=== PATIENT | female | born 1960 | race Caucasian/White ===

== ENCOUNTER 2020-03-24 16:33 | Emergency (ER) | payer BC, OTHER ==
[~2020-03-24] VITALS: Ht 165 cm; Wt 65.0 kg
--- NOTE | 2020-03-24 17:00 | ED Cardiac General ---
History of Present Illness General Chief Complaint: Cardiac/General Problems Stated Complaint: SOA,IRREGULAR Source: patient (RICKJUAN MANUEL Stinson DO) History of Present Illness Date Seen by Provider: March 24, 2020 Time Seen by Provider: 16:47 Initial Comments 59-year-old female presents with palpitations, irregular heartbeat and feeling of dyspnea. Patient reports that the symptoms have been going on for 8 days. Patient reports that she's had multiple episodes in the past. She has worn a Holter monitor in the past. Patient does admit to having significant anxiety and is very anxious upon presentation. Patient admits to a history of sarcoidosis but with a recent negative cardiac PET scan. Patient was supposed to start methotrexate but is been very nervous and anxious about that. (JUAN MANUEL CABRERA DO) Allergies and Home Medications Allergies Coded Allergies: Sulfa (Sulfonamide Antibiotics) (Verified Allergy, Intermediate, 03/24/20) penicillin G (Verified Allergy, Unknown, 03/24/20) Patient Home Medication List Home Medication List Reviewed: Yes (JUAN MANUEL CABRERA DO) Review of Systems Review of Systems Constitutional: No chills, No fever EENTM: No Symptoms Reported Respiratory: See HPI Cardiovascular: See HPI Gastrointestinal: No Symptoms Reported Skin: no symptoms reported Psychiatric/Neurological: Anxiety (JUAN MANUEL CABRERA DO) Past Ytnbans-Dhajkw-Zmziyu Hx Past Med/Social Hx: Reviewed Nursing Past Med/Soc Hx (JUAN MANUEL CABRERA DO) Patient Social History Recent Foreign Travel: No Contact w/Someone Who Travel: No (JUAN MANUEL CABRERA DO) Physical Exam Vital Signs Vital Signs - First Documented 03/24/20 17:13 Temp 36.3 Pulse 106 Resp 18 B/P (MAP) 138/60 (86) Pulse Ox 100 O2 Delivery Room Air (AVEYR MACK MD) Vital Signs Capillary Refill : (JUAN MANUEL CABRERA DO) Height, Weight, BMI Height: '" Weight: lbs. oz. kg; BMI Method: General Appearance: No Apparent Distress, Anxious Respiratory: Lungs Clear, Normal Breath Sounds, No Accessory Muscle Use Cardiovascular: Tachycardia Gastrointestinal: Non Tender, Soft Extremity: Normal Capillary Refill, Normal Inspection Neurologic/Psychiatric: Alert, Oriented x3, No Motor/Sensory Deficits, splitting machine tender II- XII Norm as Tested Skin: Normal Color, Warm/Dry (JUAN MANUEL CABRERA DO) Progress/Results/Core Measures Results/Orders Lab Results Laboratory Tests Test 03/24/20 17:03 Range/Units White Blood Count 4.9 4.3-11.0 10^3/uL Red Blood Count 4.77 4.35-5.85 10^6/uL Hemoglobin 14.2 11.5-16.0 G/DL Hematocrit 42 35-52 % Mean Corpuscular Volume 88 80-99 FL Mean Corpuscular Hemoglobin 30 25-34 PG Mean Corpuscular Hemoglobin Concent 34 32-36 G/DL Red Cell Distribution Width 11.9 10.0-14.5 % Platelet Count 234 130-400 10^3/uL Mean Platelet Volume 9.0 7.4-10.4 FL Neutrophils (%) (Auto) 55 42-75 % Lymphocytes (%) (Auto) 38 12-44 % Monocytes (%) (Auto) 7 0-12 % Eosinophils (%) (Auto) 0 0-10 % Basophils (%) (Auto) 1 0-10 % Neutrophils # (Auto) 2.7 1.8-7.8 X 10^3 Lymphocytes # (Auto) 1.9 1.0-4.0 X 10^3 Monocytes # (Auto) 0.3 0.0-1.0 X 10^3 Eosinophils # (Auto) 0.0 0.0-0.3 10^3/uL Basophils # (Auto) 0.0 0.0-0.1 10^3/uL D-Dimer 0.23 0.00-0.49 UG/ML Sodium Level 141 135-145 MMOL/L Potassium Level 3.8 3.6-5.0 MMOL/L Chloride Level 103 98-107 MMOL/L Carbon Dioxide Level 23 21-32 MMOL/L Anion Gap 15 H 5-14 MMOL/L Blood Urea Nitrogen 14 7-18 MG/DL Creatinine 0.93 0.60-1.30 MG/DL Estimat Glomerular Filtration Rate > 60 BUN/Creatinine Ratio 15 Glucose Level 107 H 70-105 MG/DL Calcium Level 9.6 8.5-10.1 MG/DL Corrected Calcium 8.5-10.1 MG/DL Magnesium Level 2.0 1.6-2.4 MG/DL Total Bilirubin 0.5 0.1-1.0 MG/DL Aspartate Amino Transf (AST/SGOT) 18 5-34 U/L Alanine Aminotransferase (ALT/SGPT) 11 0-55 U/L Alkaline Phosphatase 59 40-136 U/L Troponin I < 0.30 <0.30 NG/ML Pro-B-Type Natriuretic Peptide 80.7 H <75.0 PG/ML Total Protein 7.4 6.4-8.2 GM/DL Albumin 4.6 H 3.2-4.5 GM/DL Lipase 65 8-78 U/L (AVERY MACK MD) Medications Given in ED Current Medications Medications Dose Ordered Sig/Rahat Route Start Time Stop Time Status Last Admin Dose Admin Iohexol 75 ml ONCE ONCE IV 03/24/20 18:00 03/24/20 18:01 DC 03/24/20 18:47 75 ML Sodium Chloride 10 ml NEEDED PRN IV 03/24/20 18:00 03/24/20 18:47 10 ML Sodium Chloride 100 ml ONCE ONCE IV 03/24/20 18:00 03/24/20 18:01 DC 03/24/20 18:47 100 ML (AVERY MACK MD) Vital Signs/I&O 03/24/20 17:13 Temp 36.3 Pulse 106 Resp 18 B/P (MAP) 138/60 (86) Pulse Ox 100 O2 Delivery Room Air (AVERY MACK MD) Progress Progress Note : Time: 19:22 Progress Note I, Dr. Mack, assumed care for Mrs. Valdez at 1800 at shift change from Dr. Cabrera. Instructions at that time were to follow up on results of CT scan for disposition. In brief, Mrs. Valdez is a 59-year-old female with a history of pulmonary sarcoidosis, relatively recently diagnosed in November of this year after several years of nonproductive cough. She follows at [facility] with a lawnmower repair mechanic. She has no known cardiovascular disease. She presents with concern for 8 days of acute palpitations. She states that she will feel her heart beating irregularly. She states she has a long history of evaluation for palpitations and has worn a Holter monitor in the past but she states that these palpitations feel different. She denies associated fevers, nausea or vomiting, upper respiratory congestion/rhinorrhea, new or worsened cough, shortness of breath or chest pain, abdominal pain, flank pain, back pain, dysuria or hematuria, changes in bowel habits. She is alert and pleasantly and appropriately interactive and in no acute distress on my evaluation, although as Dr. Cabrera noted she is quite anxious appearing. Results of workup reviewed. Her electrocardiogram is reviewed and demonstrates premature atrial contractions as above. Intervals are appropriate and there is no evidence of a heart block or any ischemic changes. Telemetry monitoring also demonstrates fairly frequent premature atrial contractions without other acute abnormality identified. Labs are almost entirely unremarkable aside from trivial elevation in BNP aside from findings of fluid overload on chest x-ray. Chest x- ray was abnormal and a CT scan of the chest with contrast was obtained to further characterize pulmonary findings on plain imaging. Radiologist report is as noted, most likely consistent with known pulmonary sarcoidosis. Patient has not had any symptoms of pulmonary illness recently so infectious etiology is not felt likely. Case is discussed with Dr. Bhatia of cardiology at [facility] who would like to see the patient in the office for close follow-up in the next 1-2 days. The patient is to call for an appointment. He states that without evidence of heart block or other concerning acute process there is no need for further testing or treatment at this time and the patient is safe for dismissal home to follow up with him in the office to discuss next steps in care. I have also counseled her that she should follow up closely with her lawnmower repair mechanic in the next 1-2 weeks. She understands that if she feels worse is that of better or develops other new symptoms of concern that she should return to the emergency department right away for reevaluation. All questions are answered. (AVERY MACK MD) Comment Sinus rhythm, rate 108, no acute ST elevation or depression, LA 122, QRS 100, QTC 464, occasional PACs, EP interpretation. (AVERY MACK MD) Diagnostic Imaging Diagonstic Imaging: Xray Plain Films/CT/US/NM/MRI: chest Comments [facility], [place] NAME: MARITO VALDEZ [facility] REC#: [id number] PT STATUS: REG ER : 1960 PHYSICIAN: JUAN MANUEL CABRERA DO ADMIT DATE: 03/24/20/ER FS Draft Date of Exam:03/24/20 CHEST PA/LAT (2 VIEW) CHEST PA/LAT (2 VIEW) INDICATION: Shortness of air, irregular heartbeat. COMPARISON: None available. FINDINGS: Bilateral perihilar ill-defined pulmonary opacities are present. Interstitial opacities are also present centrally. No pleural effusion or pneumothorax. Heart is not enlarged. IMPRESSION: Imaging features are most suggestive of pulmonary edema. Atypical infection or hemorrhage could also give this appearance in appropriate setting. (JUAN MANUEL CABRERA DO) Diagonstic Imaging: CT Comments CT CHEST W CT CHEST W TECHNIQUE: Multiple contiguous axial images were obtained through the chest with the use of intravenous contrast. All CT scans use one or more of the following dose optimizing techniques: automated exposure control, MA and/or KvP adjustment based on a patient size and exam type, or iterative reconstruction. INDICATION: Shortness of air, irregular heart rate COMPARISON: Chest radiograph of earlier same day FINDINGS: Lungs and airway: No endoluminal nodule. Multifocal random and perilymphatic micronodules are present throughout both lungs. No pulmonary fibrosis. No consolidations. Linear opacities are present in left lower lobe and favor atelectasis/scar. Pleura: No pleural effusion or pneumothorax. Heart and mediastinum: No supraclavicular or axillary lymphadenopathy. There are multiple mildly enlarged mediastinal lymph nodes, some of which are partially calcified. This includes a subcarinal lymph node with a maximal short axis diameter of 1.5 cm and a right upper paratracheal lymph node measuring 1.0 cm. There are borderline enlarged bilateral hilar lymph nodes. No juxtaphrenic lymphadenopathy. Heart is normal in size without pericardial effusion. Normal caliber thoracic aorta. Upper abdomen: Simple cyst within the dome of the liver requires no dedicated followup imaging. No acute abnormality in the upper abdomen. Musculoskeletal: No concerning focal osseous lesions. IMPRESSION: 1. Pulmonary micronodules have a predominant perilymphatic distribution and are most likely due to patient's known sarcoidosis. Superimposed infectious process remains a possibility but is felt less likely. 2. Mediastinal and hilar lymphadenopathy further supports patient's diagnosis of sarcoidosis. Dictated by: Dictated on workstation # [id number] (AVERY MACK MD) Departure Impression Primary Impression: Premature atrial contractions Additional Impression: Sarcoidosis Disposition: 01 HOME, SELF-CARE Condition: Stable Departure-Patient Inst. Referrals: MATILDE RIOS MD (PCP/Family) Primary Care Physician Patient Instructions: Sarcoidosis Add. Discharge Instructions: Follow-up very closely with Dr. Bhatia of [facility] cardiology in the office in the next 1-2 days as discussed. Please call his office at the number provided tomorrow morning when the clinic opens and let the electrifier operator note that Dr. Bhatia would like you to be worked in for the first available appointment. We would like you to follow-up very closely with her lawnmower repair mechanic as well, ideally within the next 1-2 weeks. Return to the emergency department right away with worsening symptoms or with any other new symptoms of concern. JUAN MANUEL CABRERA DO March 24, 2020 17:00 AVERY MACK MD March 24, 2020 19:29
--- NOTE | 2020-03-24 17:08 | Diagnostic Imaging Report ---
CHEST PA/LAT (2 VIEW) INDICATION: Shortness of air, irregular heartbeat. COMPARISON: None available. FINDINGS: Bilateral perihilar ill-defined pulmonary opacities are present. Interstitial opacities are also present centrally. No pleural effusion or pneumothorax. Heart is not enlarged. IMPRESSION: Imaging features are most suggestive of pulmonary edema. Atypical infection or hemorrhage could also give this appearance in appropriate setting. Dictated by: Dictated on workstation # [id number]
[2020-03-24 17:20] LABS: BASOPHILS % (AUTO) 1 % (0-10); EOSINOPHILS % (AUTO) 0 % (0-10); HEMATOCRIT 42 % (35-52); HEMOGLOBIN 14.2 G/DL (11.5-16.0); LYMPHOCYTES # (AUTO) 1.9 X 10^3 (1.0-4.0); LYMPHOCYTES % (AUTO) 38 % (12-44); MEAN CORPUSCULAR HEMOGLOBIN 30 PG (25-34); MEAN CORPUSCULAR HGB CONC 34 G/DL (32-36); MEAN CORPUSCULAR VOLUME 88 FL (80-99); MONOCYTES # (AUTO) 0.3 X 10^3 (0.0-1.0); MONOCYTES % (AUTO) 7 % (0-12); NEUTROPHILS # (AUTO) 2.7 X 10^3 (1.8-7.8); NEUTROPHILS % (AUTO) 55 % (42-75); PLATELET COUNT 234 10^3/uL (130-400); RED CELL DISTRIBUTION WIDTH 11.9 % (10.0-14.5); WHITE BLOOD COUNT 4.9 10^3/uL (4.3-11.0)
[2020-03-24 17:45] LABS: ALANINE AMINOTRANSFERASE 11 U/L (0-55); ALKALINE PHOSPHATASE 59 U/L (40-136); BILIRUBIN,TOTAL 0.5 MG/DL (0.1-1.0); BUN/CREATININE RATIO 15; CALCIUM 9.6 MG/DL (8.5-10.1); CARBON DIOXIDE 23 MMOL/L (21-32); CHLORIDE 103 MMOL/L (98-107); CREATININE SERUM 0.93 MG/DL (0.60-1.30); GFR ESTIMATED > 60; GLUCOSE 107 MG/DL (70-105); POTASSIUM 3.8 MMOL/L (3.6-5.0); SODIUM 141 MMOL/L (135-145)
[2020-03-24 17:46] LABS: ALBUMIN 4.6 GM/DL (3.2-4.5); LIPASE 65 U/L (8-78); TOTAL PROTEIN 7.4 GM/DL (6.4-8.2)
[2020-03-24] MEDS ORDERED: HOLD METFORMIN - RECEIVED CONTRAST 20 ML VIAL IV SCH (18:00)
[2020-03-24] MEDS ORDERED: NS 100 ML (IVPB) BAG IV ONE (18:00)
[2020-03-24] MEDS ORDERED: IOHEXOL 350 MG/ML 100 ML (OMNIPAQUE 350) VIAL IV ONE (18:00)
[2020-03-24] MEDS ORDERED: CATHETER FLUSH 10 ML SYR IV PRN (18:00)
--- OUTSIDE RECORDS SUMMARY | 2020-03-24 18:26 | XMS REPORT | Continuity of Care Document ---
Author Organization Unknown Address Unknown Phone Unavailable Allergies There is no data. Medications There is no data. Problems There is no data. Procedures There is no data. Results Test Result Range Complete blood count (CBC) with automate d white blood cell (WBC) differential - 03/24/20 17:03 Blood leukocytes automated count (number/volume) 4.9 10*3/uL 4.3-11.0 Blood erythrocytes automated count (number/volume) 4.77 10*6/uL 4.35-5.85 Venous blood hemoglobin measurement (mass/volume) 14.2 g/dL 11.5-16.0 Blood hematocrit (volume fraction) 42 % 35-52 Automated erythrocyte mean corpuscular volume 88 [ foz_us] 80-99 Automated erythrocyte mean corpuscular h emoglobin (mass per erythrocyte) 30 pg 25-34 Automated erythrocyte mean corpuscular h emoglobin concentration measurement (mass/volume) 34 g/dL 32-36 Automated erythrocyte distribution width ratio 11. 9 % 10.0- 14.5 Automated blood platelet count (count/volume) 234 10*3/uL 130-400 Automated blood platelet mean volume measurement 9.0 [foz_us] 7.4-10.4 Automated blood neutrophils/100 leukocytes 55 % 42-75 Automated blood lymphocytes/100 leukocytes 38 % 12-44 Blood monocytes/100 leukocytes 7 % 0-12 Automated blood eosinophils/100 leukocytes 0 % 0-10 Automated blood basophils/100 leukocytes 1 % 0-10 Blood neutrophils automated count (number/volume) 2.7 10*3 1.8-7.8 Blood lymphocytes automated count (number/volume) 1.9 10*3 1.0-4.0 Blood monocytes automated count (number/volume) 0. 3 10*3 0.0-1.0 Automated eosinophil count 0.0 10*3/uL 0 .0-0.3 Automated blood basophil count (count/volume) 0.0 10*3/uL 0.0-0.1 Fibrin D-dimer FEU measurement in platel et poor plasma (mass/volume) - 03/24/20 17:03 Fibrin D-dimer FEU measurement in platelet poor plasma (mass/volume) 0.23 ug/mL 0.00-0.49 Comprehensive metabolic panel - 03/24/20 17:03 Serum or plasma sodium measurement (moles/volume) 141 mmol/L 135-145 Serum or plasma potassium measurement (moles/volume) 3.8 mmol/L 3.6-5.0 Serum or plasma chloride measurement (moles/volume) 103 mmol/L 98-107 Carbon dioxide 23 mmol/L 21-32 Serum or plasma anion gap determination (moles/volume) 15 mmol/L 5-14 Serum or plasma urea nitrogen measurement (mass/volume ) 14 mg/dL 7-18 Serum or plasma creatinine measurement (mass/volume) 0.93 mg/dL 0.60-1.30 Serum or plasma urea nitrogen/creatinine mass ratio 15 NRG Serum or plasma creatinine measurement w ith calculation of estimated glomerular filtration rate > NRG Serum or plasma glucose measurement (mass/volume) 107 mg/dL 70-105 Serum or plasma calcium measurement (mass/volume) 9.6 mg/dL 8.5-10.1 Serum or plasma total bilirubin measurement (mass/volu me) 0.5 mg/dL 0.1-1.0 Serum or plasma alkaline phosphatase joshua surement (enzymatic activity/volume) 59 U/L 40-136 Serum or plasma aspartate aminotransfera se measurement (enzymatic activity/volume) 18 U/L 5-34 Serum or plasma alanine aminotransferase measurement (enzymatic activity/volume) 11 U/L 0-55 Serum or plasma protein measurement (mass/volume) 7.4 g/dL 6.4-8.2 Serum or plasma albumin measurement (mass/volume) 4.6 g/dL 3.2-4.5 Magnesium - 03/24/20 17:03 Magnesium 2.0 mg/dL 1.6-2.4 TROPONIN I FS - 03/24/20 17:03 TROPONIN I FS < 0.30 <0.30 PROBNP FS - 03/24/20 17:03 PROBNP FS 80.7 pg/mL <75.0 Lipase - 03/24/20 17:03 Lipase 65 U/L 8-78 Encounters ACCT No. Visit Date/Time Discharge Status Pt. Type Provider Facility Loc./Unit Complaint [id number] 10/26/2019 10:00:00 10/26/2019 23:59: 59 [facility] [id number] 03/24/2020 17:21:00 Document Registration
--- NOTE | 2020-03-24 18:54 | Diagnostic Imaging Report ---
CT CHEST W TECHNIQUE: Multiple contiguous axial images were obtained through the chest with the use of intravenous contrast. All CT scans use one or more of the following dose optimizing techniques: automated exposure control, MA and/or KvP adjustment based on a patient size and exam type, or iterative reconstruction. INDICATION: Shortness of air, irregular heart rate COMPARISON: Chest radiograph of earlier same day FINDINGS: Lungs and airway: No endoluminal nodule. Multifocal random and perilymphatic micronodules are present throughout both lungs. No pulmonary fibrosis. No consolidations. Linear opacities are present in left lower lobe and favor atelectasis/scar. Pleura: No pleural effusion or pneumothorax. Heart and mediastinum: No supraclavicular or axillary lymphadenopathy. There are multiple mildly enlarged mediastinal lymph nodes, some of which are partially calcified. This includes a subcarinal lymph node with a maximal short axis diameter of 1.5 cm and a right upper paratracheal lymph node measuring 1.0 cm. There are borderline enlarged bilateral hilar lymph nodes. No juxtaphrenic lymphadenopathy. Heart is normal in size without pericardial effusion. Normal caliber thoracic aorta. Upper abdomen: Simple cyst within the dome of the liver requires no dedicated followup imaging. No acute abnormality in the upper abdomen. Musculoskeletal: No concerning focal osseous lesions. IMPRESSION: 1. Pulmonary micronodules have a predominant perilymphatic distribution and are most likely due to patient's known sarcoidosis. Superimposed infectious process remains a possibility but is felt less likely. 2. Mediastinal and hilar lymphadenopathy further supports patient's diagnosis of sarcoidosis. Dictated by: Dictated on workstation # [id number]
[2020-03-24 19:40] VITALS: BP 107/73
[2020-03-25 16:07] LABS: TSH (THYROID ANALYZER) 1.44 UIU/ML (0.35-4.94)
== END 2020-03-24 19:40 | disposition home or self-care (01) ==
LOC: ER FS 16:35
DX: I49.1 Atrial premature depolarization (principal); D86.0 Sarcoidosis of lung; Z88.2 Allergy status to sulfonamides; Z88.0 Allergy status to penicillin
CPT/HCPCS: 36415; 71046; 71260; 80053; 83690; 83735; 83880; 84443; 84484; 85025; 85379; 93005; 93041

== ENCOUNTER → 2020-04-02 | Outpatient (CLI) | payer BC | LOC: CARD 10:53 | PROVIDERS: ATTEND Family Medicine | DX: I49.9 Cardiac arrhythmia, unspecified (principal) | CPT/HCPCS: 93225; 93226 ==

== ENCOUNTER → 2020-04-10 | Outpatient (CLI) | payer BC | LOC: CARD 09:59 | PROVIDERS: ATTEND Internal Medicine Cardiovascular Disease | DX: I49.1 Atrial premature depolarization (principal); R06.00 Dyspnea, unspecified; D68.9 Coagulation defect, unspecified; R00.2 Palpitations; I31.3 Pericardial effusion (noninflammatory) | CPT/HCPCS: 93306 ==

== ENCOUNTER → 2020-11-03 | Outpatient (CLI) | payer BC ==
[~2020-11-03] VITALS: Ht 165 cm; Wt 59.0 kg
[~2020-11-03] MED LIST: REGADENOSON 0.4 MG/5 ML SYR (LEXISCAN) IV ONE
[2020-11-03] MEDS: CATHETER FLUSH 10 ML SYR IV PRN ×2 (11:06→11:48)
[2020-11-03 11:46] VITALS: BP 109/74
--- NOTE | 2020-11-03 14:24 | Cardiology Stress Test Report ---
Stress Test Report Date of Procedure/Referring: Date of Procedure: Nov 03, 2020 PCP Kelsey Kendrick Admitting Physician Self,You PRINGLE Baseline Blood Pressure: Blood Pressure Systolic: 109 Blood Pressure Diastolic: 74 Baseline Vitals Vital Signs Date Time Temp Pulse Resp B/P (MAP) Pulse Ox O2 Delivery O2 Flow Rate FiO2 11/03/20 11:46 90 16 109/74 (86) 98 Room Air Summary After explaining the procedure to the patient, she signed a consent and then brought to the stress nuclear laboratory. Patient received 0.4 mg Lexiscan for stress test, ECG, heart rate and blood pressure were monitored continuously. Resting and stress dose of radio tracer were injected, imaging was acquired and reviewed in short axis, horizontal long axis and vertical long axis views. TID: 1.01 SSS: 9 SDS: 6 EF: 87 Patient tolerated test well Breast attenuation with mild decrease uptake in the mid to apical ari-septum, no significant ischemia or infarction on SPECT images Normal LV size, EF 87% KAR ALBRIGHT MD Nov 03, 2020 14:24
== END ==
LOC: CARD 09:56
PROVIDERS: ATTEND Physician Assistant
DX: R07.9 Chest pain, unspecified (principal)
CPT/HCPCS: 78452; 93017; A9502; 93306

== ENCOUNTER 2020-12-24 11:00 | Day surgery (SDC) | payer BC ==
[~2020-12-24] VITALS: Ht 165 cm; Wt 59.0 kg
[2020-12-24] VITALS (8 sets, daily range): BP systolic 82–113; BP diastolic 53–80
[2020-12-24 09:28] LABS: BILIRUBIN,URINE NEGATIVE (NEGATIVE); CLARITY,URINE SL CLOUDY; COLOR,URINE YELLOW; GLUCOSE, URINE (UA) NEGATIVE (NEGATIVE); KETONES,URINE NEGATIVE (NEGATIVE); LEUKOCYTE ESTERASE ,URINE NEGATIVE (NEGATIVE); NITRITE,URINE NEGATIVE (NEGATIVE); PH,URINE 6.5 (5-9); PROTEIN,URINE NEGATIVE (NEGATIVE)
[2020-12-24 09:30] LABS: HEMOGLOBIN 15.1 g/dL (11.5-16.0); MEAN PLATELET VOLUME 9.2 fL (9.0-12.2); WHITE BLOOD COUNT 4.5 10^3/uL (4.3-11.0)
--- NOTE | 2020-12-24 09:36 | Diagnostic Imaging Report ---
Indication: Preop for coronary angiography, chest pain Frontal chest obtained at 0918 a.m. compared to 03/24/2020 Heart is normal in size. There is unchanged central vascular congestion with unchanged diffuse interstitial prominence. There is perhaps some minimal infiltrate in the right perihilar region. There is no pneumothorax or pleural fluid collection. IMPRESSION: Chronic central vascular congestion with chronic interstitial prominence appearing similar to 03/24/2020. There is perhaps some minimal infiltrate in the right perihilar region. There is no pneumothorax or pleural fluid. Dictated by: Dictated on workstation # [id number]
[2020-12-24 09:42] LABS: PROTHROMBIN TIME PATIENT 13.1 SEC (12.2-14.7)
[2020-12-24 09:44] LABS: BACTERIA,URINE NEGATIVE /HPF; SQUAMOUS EPITHELIAL CELL,UR RARE /HPF
[2020-12-24 09:52] LABS: ALANINE AMINOTRANSFERASE 12 U/L (0-55); ALBUMIN 4.6 GM/DL (3.2-4.5); ALKALINE PHOSPHATASE 52 U/L (40-136); BILIRUBIN,TOTAL 0.5 MG/DL (0.1-1.0); BUN/CREATININE RATIO 15; CALCIUM 9.4 MG/DL (8.5-10.1); CARBON DIOXIDE 25 MMOL/L (21-32); CHLORIDE 104 MMOL/L (98-107); CHOLESTEROL 224 MG/DL (< 200); CREATININE SERUM 1.01 MG/DL (0.60-1.30); GFR ESTIMATED 56; GLUCOSE 96 MG/DL (70-105); HDL CHOLESTEROL 54 MG/DL (40-60); POTASSIUM 3.5 MMOL/L (3.6-5.0); SODIUM 141 MMOL/L (135-145); TOTAL PROTEIN 7.9 GM/DL (6.4-8.2); TRIGLYCERIDES 118 MG/DL (<150); VLDL CHOLESTEROL 24 MG/DL (5-40)
[~2020-12-24 11:00] MED LIST changes: +ACET325C7 PO; +ALPR0.5T7 PO; +CETI10TA17 PO; +FAMO20TA3 PO; +FLUT9.9S NS; +HEParin (CATH LAB) 2,000 ML IV ONE; +HEParin 1000 UNIT/ML (10ML VIAL) FOR BOLUS ONE; +IBUP-2473 PO; +LATA5DRO OU; +LIDOCAINE 1% INJ 20 ML 20 ML VIAL ONE; +MIDAZOLAM 5 MG/5 ML (VERSED) VIAL ONE; +MTP25TSR PO; +NITRO DRIP 25000 MCG/D5W 250 ML IV ONE; +NS IV 1000 ML 1,000 ML IV SCH; +NS IV 1000 ML 1,000 ML ONE; -REGADENOSON 0.4 MG/5 ML SYR (LEXISCAN) IV ONE; +VALA500T4 PO; +VERAPAMIL 5 MG/2 ML (CALAN) VIAL IV ONE; +fentaNYL INJECTION 100 MCG/2 ML AMP ONE
[2020-12-24] MEDS ORDERED: NS IV 1000 ML 1,000 ML IV SCH (11:15)
--- NOTE | 2020-12-24 11:16 | Cardiac Procedure Note-CS/ASA ---
Pre-Procedure Note Pre-Op Procedure Note H&P Reviewed The H&P was reviewed, patient examined and no changes noted. Date H&P Reviewed: Dec 24, 2020 Time H&P Reviewed: 11:16 Conscious Sedation Pre-Proced Time 11:16 ASA Score 3 For ASA 3 and 4: Consider anesthesia and medical clearance. Also, for patients with a history of failed moderate sedation consider anesthesia. Airway Lungs Heart ASA score ASA 1: a normal healthy patient ASA 2: a patient with a mild systemic disease (mid diabetes, controlled hypertension, obesity x ASA 3: a patient with a severe systemic disease that limits activity (angina, COPD, prior Myocardial infarction) ASA 4: a patient with an incapacitating disease that is a constant threat to life (CHF, renal failure) ASA 5: a moribund patient not expected to survive 24 hrs. (ruptured aneurysm) ASA 6: a declared brain- patient whose organs are being harvested. For emergent operations, add the letter E after the classification Mallampati Classification Grade 3 Sedation Plan Analgesia, Amnesia, Plan communicated to team members, Discussed options with patient/fam, Discussed risks with patient/fam The patient is an appropriate candidate to undergo the planned procedure, sedation, and anesthesia. The patient immediately re-assessed prior to indication. KAR ALBRIGHT MD Dec 24, 2020 11:16
--- NOTE | 2020-12-24 11:16 | Discharge Inst-Post CATH ---
Discharge Inst-CATH/EP Problems Reviewed?: Yes Post Cardiac Cath/EP D/C Inst Follow Up/Plan Appointment with Dr. Bhatia's office in 4-6 weeks <b>CARDIAC CATH/EP PROCEDURE DISCHARGE INSTRUCTIONS</b> ACTIVITY * Go Home directly and rest. * Limit activity of the leg (or wrist if it was used) for 7 days including aerobics, swimming, jogging, bicycling, etc. * Restrict stair-climbing for 7 days if possible, if not, climb up with your non-cath leg, then bring together on the same step. * Avoid lifting, pushing, pulling or excessive movement of the affected extremity for 7 days. * Customary sexual activity may be resumed after 2 days-use caution not to use a position that strains or causes pain to the affected extremity. * No driving for 24 hours. * NO SMOKING. * Avoid straining for bowel movements for 7 days. * Gentle walking on level ground is allowed. * Returning to work will depend on the type of procedure and the results. Your doctor will discuss this with you. CALL YOUR DOCTOR FOR ANY OF THE FOLLOWING: *If bleeding from the puncture site occurs- Apply gentle pressure to site with clean cloth and call your doctor or EMS. * If a knot or lump forms under the skin, increases in size, or causes pain. * If bruising appears to be worsening or moving further down your leg instead of disappearing. * Temperature above 101 F. CARE OF YOUR GROIN INCISION; * Bruising or purple discoloration of the skin near the puncture site is common. * You may shower only, no bathtub bathing for 5 days. Be careful to avoid slipping as your leg may feel stiff. * If a closure device was used on your femoral artery, please see the attached guide regarding care of the device and your leg. * Leave dressing on FOR 24 hours. CARE OF YOUR WRIST INCISION; * Bruising or purple discoloration of the skin near the puncture site is common. * You may shower. * DO NOT submerge wrist. * Leave dressing on FOR 24 hours. KAR BHATIA MD Dec 24, 2020 11:16
[2020-12-24] MEDS ORDERED: ATOR10TA PO (11:20)
--- NOTE | 2020-12-24 11:20 | Cardiac Cath Report ---
Cardiac Cath Report Physician (s)/[employer] Teacher (s) Physician KAR ALBRIGHT MD Pre-Procedure Diagnosis Pre-Procedure Diagnosis: coronary artery disease Post-Procedure Note Procedure Start Date: Dec 24, 2020 Name of Procedure: Left heart catheterization Aortic arch angiogram Findings/Procedure Note PROCEDURE NOTE: 60 years old lady with history of hypertension, hyperlipidemia, has been having chest pain, had an abnormal stress test and scheduled for cardiac catheterization possible PTCA. After explaining the procedure to the patient, all pros and cons were explained, all questions were answered. The patient signed the consent and then she was placed on the cardiac catheterization laboratory. Groin was prepped SL fashion local anesthesia was used. Sheath placed in the right radial artery, Charlotte catheter advanced to the left ventricular cavity, pressure was measured no left ventriculogram was done, pulled back to the aorta then intubated the left main coronary system and angiogram was done to the left coronary system then intubated the right coronary system and angiogram was done and it was pulled to the aortic arch and aortic arch angiogram was done, no source of her recurrent chest pain was noted from her coronary anatomy or evaluating her aorta. At the end of the procedure the sheath was removed. Vascular band was used FINDINGS: Hemodynamics LV 98/14, end-diastolic pressure 14 Aorta 92/62 mean of 76 ANATOMY: Left Main is free of obstructive disease Left Anterior Descending is moderate in size with no obstructive disease Left Circumflex is small nondominant artery with no obstructive disease Right Coronory Artery is dominant artery with mild disease nonobstructive disease LV Gram was not done, pressure was measured Aorta evaluation done with aortic arch angiogram showing normal aortic arch, no dissection or aneurysm, normal origin of the innominate artery, left subclavian and left carotid arteries CONCLUSION: 1. Dominant right coronary system, small coronary system with no significant obstructive disease 2. Normal left ventricular end-diastolic pressure 3. Normal aortic arch and great vessels of the neck DISCUSSION AND RECOMMENDATION: Chest pain is probably noncardiac, medical therapy is recommended, patient was noted to be hyperlipidemia, started on low-dose statin Anesthesia Type: Conscious Sedation Estimated blood loss (mL): 10 ml Contrast Amount: 55 ml Total Radiation Dose: 92 mGy Post-Procedure Diagnosis Post-operative diagnosis: Chest pain Coronary artery disease Hypertension Hyperlipidemia KAR ALBRIGHT MD Dec 24, 2020 11:20
== END 2020-12-24 14:05 | disposition home or self-care (01) ==
LOC: CATH 11:00 → SDC 11:35 → CATH 14:05
PROVIDERS: ATTEND Internal Medicine Cardiovascular Disease
DX: I25.10 Atherosclerotic heart disease of native coronary artery without angina pectoris (principal); I10 Essential (primary) hypertension; E78.5 Hyperlipidemia, unspecified; D86.9 Sarcoidosis, unspecified; I49.1 Atrial premature depolarization; Z79.899 Other long term (current) drug therapy; Z88.0 Allergy status to penicillin; Z88.2 Allergy status to sulfonamides
CPT/HCPCS: 36221; 71045; 80053; 80061; 81000; 85027; 85610; 85730; 87081; 93458; C1894; 36415

== ENCOUNTER → 2022-08-18 | Outpatient (CLI) | payer BC ==
[~2022-08-18] MED LIST changes: +ATOR10TA PO; -HEParin (CATH LAB) 2,000 ML IV ONE; -HEParin 1000 UNIT/ML (10ML VIAL) FOR BOLUS ONE; -LIDOCAINE 1% INJ 20 ML 20 ML VIAL ONE; -MIDAZOLAM 5 MG/5 ML (VERSED) VIAL ONE; -NITRO DRIP 25000 MCG/D5W 250 ML IV ONE; -NS IV 1000 ML 1,000 ML IV SCH; -NS IV 1000 ML 1,000 ML ONE; -VERAPAMIL 5 MG/2 ML (CALAN) VIAL IV ONE; -fentaNYL INJECTION 100 MCG/2 ML AMP ONE
--- NOTE | 2022-08-18 13:43 | Diagnostic Imaging Report ---
EXAMINATION: CT chest without contrast. TECHNIQUE: Multiple contiguous axial images were obtained through the chest without the use of intravenous contrast. All CT scans use one or more of the following dose optimizing techniques: automated exposure control, MA and/or KvP adjustment based on patient size and exam type or iterative reconstruction. HISTORY: Sarcoidosis. COMPARISON: 03/24/2020. FINDINGS: There are extensive bilateral perilymphatic nodules and peribronchovascular thickening, worsened from prior exam. The most discrete right lower lobe nodule measures 1.5 x 3.0 cm. No pleural effusion. No pneumothorax. There is no axillary or supraclavicular lymphadenopathy. There is mediastinal lymphadenopathy with partially calcified mediastinal lymph nodes. Lymph nodes measure up to 1.7 cm in the right hilum. This node previously measured 0.8 cm. Left hilar lymph nodes have increased in size. Heart size is normal. There are no coronary artery calcifications. No pericardial effusion. Aorta is normal in caliber. Limited views of the upper abdomen show cysts in the liver. There are no suspicious osseous lesions. IMPRESSION: 1. Progressive extensive bilateral perilymphatic nodules and peribronchovascular thickening, consistent with progression of sarcoidosis. 2. Mediastinal and hilar lymph nodes have also increased in size. Dictated by: Dictated on workstation # [id number]
== END ==
LOC: RAD FS 10:40
PROVIDERS: ATTEND Registered Nurse
DX: D86.2 Sarcoidosis of lung with sarcoidosis of lymph nodes (principal)
CPT/HCPCS: 71250

== ENCOUNTER 2023-01-13 19:54 | Emergency (ER) | payer BC ==
[~2023-01-13] VITALS: Ht 165.1 cm; Wt 58.7 kg
[2023-01-13 19:57] VITALS: BP 141/74
[2023-01-13] MEDS ORDERED: TETANUS,DIPTH,PERTUSS P/F (BOOSTRIX) 0.5 ML VIAL IM ONE (20:15)
[2023-01-13] MEDS ORDERED: LIDOCAINE/EPI 2% 1:100,00 (XYLOCAINE) 20 ML VIAL INJ ONE (20:15)
--- NOTE | 2023-01-13 20:35 | ED Upper Extremity ---
General Chief Complaint: Laceration Stated Complaint: R INDEX FINGER LAC Nursing Triage Note: Patient states that she was coring an apple and cut her right index finger on a knife. Patient has a bandage on the laceration on arrival. Bleeding is controlled with pressure. Patient reports that this happened approximately 30 minutes CATECHIST. Source: patient Exam Limitations: no limitations History of Present Illness Date Seen by Provider: Jan 13, 2023 Time Seen by Provider: 20:10 Initial Comments Patient is a 62-year-old right-handed female presents with laceration to the right index finger while using a kitchen knife. Patient has 4 cm, curvilinear full-thickness laceration over the extensor radial aspect of the mid section of the index finger. Bleeding is controlled. No joint involvement. Wound is grossly clean. Onset: just prior to arrival Pain/Injury Location: right 2nd finger Method of Injury: incised Modifying Factors: Improves With Other Allergies and Home Medications Allergies Coded Allergies: Sulfa (Sulfonamide Antibiotics) (Verified Allergy, Intermediate, 03/24/20) penicillin G (Verified Allergy, Unknown, 03/24/20) Patient Home Medication List Home Medication List Reviewed: Yes Acetaminophen (Tylenol) 325 Mg Capsule, 325-650 MG PO Q6H PRN for PAIN-MILD (1- 4), (Reported) Entered as Reported by: ANIRUDH YORK on 12/24/20933 Alprazolam (Alprazolam) 0.5 Mg Tablet, 0.25-0.5 MG PO HS, (Reported) Entered as Reported by: ANIRUDH YORK on 12/24/20933 Atorvastatin Calcium (Lipitor) 10 Mg Tablet, 10 MG PO DAILY Prescribed by: KAR ALBRIGHT on 12/24/20 1120 Cetirizine HCl (Cetirizine HCl) 10 Mg Tablet, 10 MG PO DAILY, (Reported) Entered as Reported by: ANIRUDH YORK on 12/24/20933 Famotidine (Acid Tumbler Machine Operator (FAMOTIDINE)) 20 Mg Tablet, 20 MG PO DAILY PRN for HEARTBURN, (Reported) Entered as Reported by: ANIRUDH YORK on 12/24/20933 Fluticasone Propionate (Flonase Allergy Relief) 9.9 Ml [place].susp, 2 SPRAY NS DAILY, (Reported) Entered as Reported by: ANIRUDH YORK on 12/24/20933 Ibuprofen (Ibuprofen) 200 Mg Tablet, 400 MG PO Q8H PRN for PAIN-MILD (1-4), (Reported) Entered as Reported by: ANIRUDH YORK on 12/24/20933 Latanoprostene Bunod (Vyzulta) 5 Ml Drops, 1 DROP OU HS, (Reported) Entered as Reported by: ANIRUDH YORK on 12/24/20933 Metoprolol Succinate (Metoprolol Succinate) 25 Mg Tab.er.24h, 25 MG PO HS, (Reported) Entered as Reported by: ANIRUDH YORK on 12/24/20933 Valacyclovir HCl (Valtrex) 500 Mg Tablet, 500 MG PO DAILY, (Reported) Entered as Reported by: ANIRUDH YORK on 12/24/20933 Review of Systems Constitutional: see HPI Skin: see HPI Past [place] Hx Patient Social History Tobacco Use?: No Substance use?: No Alcohol Use?: No Pt feels they are or have been: No Immunizations Up To Date Tetanus Booster (TDap): Unknown COVID19 Vaccine Document Management Consultant: Versiuma Seasonal Allergies Seasonal Allergies: No Past Medical History Surgery/Hospitalization HX: Sarcoidosis of the Lungs Surgeries: Yes Cystectomy, Hysterectomy Respiratory: Yes (SARCOIDOSIS OF LUNGS) Cardiac: No Neurological: No Genitourinary: No Gastrointestinal: No Gastroesophageal Reflux, Gall Bladder Disease Musculoskeletal: No Endocrine: No HEENT: No Cancer: No Psychosocial: Yes Anxiety Blood Disorders: No Physical Exam Vital Signs Capillary Refill : Less Than 3 Seconds Height, Weight, BMI Height: '" Weight: lbs. oz. kg; 21.00 BMI Method: General Appearance: WD/WN, no apparent distress Skin: other (3 and half centimeter curvilinear laceration over extensor radial aspect of right index finger mid section. No joint involvement. Bleeding is controlled. Wound is clean.) Procedures/Interventions Wound Location: Upper Extremities Other Wound Location Right index finger Wound Explored: clean Irrigated w/ Saline (ccs): 200 Betadine Prep?: No Anesthesia: Lidocaine w/ Epi Suture: Ethlion Suture Size: 5-0 Number of Sutures: 12 Layer Closure?: 1 Number Deep Layer Sutures: 0 Sterile Dressing Applied?: Yes Progress Running interlocked sutures with good wound edge approximation. Progress/Results/Core Measures Results/Orders My Orders Orders - CHERELLE MARTINEZ DO Dipht,Marlon(Acell),Tet Adult (Boostrix (01/13/23 20:15) Lidocaine/Epi 2% 1:100,000 (Xylocaine/Ep (01/13/23 20:15) 2 Blood Pressure Mean: 96 Departure Communication (Admissions) Right finger laceration. Wound cleansed and closed with good wound edge approximation. Wound bandaged antibiotics applied tetanus updated. Typical wound care instructions provided. Return precautions reviewed. Patient verbalizes understanding agreement with discharge instructions prior to departure Impression Primary Impression: Laceration of right index finger Disposition: HOME, SELF-CARE Condition: Stable Departure-Patient Inst. Decision time for Depature: 20:34 Referrals: SELFMATILDE MD (PCP/Family) Primary Care Physician Patient Instructions: Laceration Repair With Stitches ED Add. Discharge Instructions: Please keep wound clean dry and covered. Apply topical antibiotic 3 times daily and take ibuprofen as needed for pain. Return to the ED or remove sutures in 10 days. Return sooner if signs of infection. All discharge instructions reviewed with patient and/or family. Voiced understanding. CHERELLE MARTINEZ DO Jan 13, 2023 20:35
== END 2023-01-13 20:36 | disposition home or self-care (01) ==
LOC: EDUNIT# 19:54 → ER FS 19:55
DX: S61.210A Laceration without foreign body of right index finger without damage to nail, initial encounter (principal); Z23 Encounter for immunization; W26.0XXA Contact with knife, initial encounter
CPT/HCPCS: 12041; 90715

== ENCOUNTER 2023-01-24 13:16 | Emergency (ER) | payer BC ==
[~2023-01-24] VITALS: Ht 165 cm; Wt 65.0 kg
[2023-01-24 13:20] VITALS: BP 128/89
== END 2023-01-24 13:36 | disposition home or self-care (01) ==
LOC: EDUNIT# 13:16 → ER FS 13:25
DX: Z48.02 Encounter for removal of sutures (principal)

== ENCOUNTER → 2023-06-27 | Outpatient (CLI) | payer BC ==
[2023-06-27 13:20] LABS: BASOPHILS # (AUTO) 0.1 10^3/uL (0.0-0.1); BASOPHILS % (AUTO) 1 % (0-10); EOSINOPHILS # (AUTO) 0.1 10^3/uL (0.0-0.3); EOSINOPHILS % (AUTO) 1 % (0-10); HEMATOCRIT 43 % (35-52); HEMOGLOBIN 14.6 g/dL (11.5-16.0); LYMPHOCYTES # (AUTO) 1.8 10^3/uL (1.0-4.0); LYMPHOCYTES % (AUTO) 30 % (12-44); MEAN CORPUSCULAR HEMOGLOBIN 32 pg (25-34); MEAN CORPUSCULAR HGB CONC 34 g/dL (32-36); MEAN CORPUSCULAR VOLUME 94 fL (80-99); MEAN PLATELET VOLUME 9.1 fL (9.0-12.2); MONOCYTES # (AUTO) 0.5 10^3/uL (0.0-1.0); MONOCYTES % (AUTO) 8 % (0-12); NEUTROPHILS # (AUTO) 3.4 10^3/uL (1.8-7.8); NEUTROPHILS % (AUTO) 59 % (42-75); PLATELET COUNT 202 10^3/uL (130-400); WHITE BLOOD COUNT 5.8 10^3/uL (4.3-11.0)
[2023-06-27 13:40] LABS: CARBON DIOXIDE 28 MMOL/L (21-32); CHLORIDE 105 MMOL/L (98-107); POTASSIUM 4.4 MMOL/L (3.6-5.0); SODIUM 142 MMOL/L (135-145)
[2023-06-27 13:41] LABS: ALANINE AMINOTRANSFERASE 12 U/L (0-55); ALBUMIN 4.6 GM/DL (3.2-4.5); ALKALINE PHOSPHATASE 68 U/L (40-136); BILIRUBIN,TOTAL 0.5 MG/DL (0.1-1.0); BUN/CREATININE RATIO 14; CALCIUM 9.8 MG/DL (8.5-10.1); CREATININE SERUM 1.09 MG/DL (0.60-1.30); GFR ESTIMATED 57; GLUCOSE 100 MG/DL (70-105); TOTAL PROTEIN 7.2 GM/DL (6.4-8.2)
== END ==
LOC: LAB FS 12:55
PROVIDERS: ATTEND Registered Nurse
DX: D86.2 Sarcoidosis of lung with sarcoidosis of lymph nodes (principal); Z79.899 Other long term (current) drug therapy
CPT/HCPCS: 36415; 80053; 85025

== ENCOUNTER → 2023-07-22 | Outpatient (CLI) | payer BC ==
[~2023-07-22] MED LIST changes: +FAMO-356 PO; -FAMO20TA3 PO
[2023-07-22 14:09] LABS: ALBUMIN 4.4 GM/DL (3.2-4.5); BILIRUBIN,TOTAL 0.5 MG/DL (0.1-1.0); CALCIUM 9.6 MG/DL (8.5-10.1); CREATININE SERUM 0.97 MG/DL (0.60-1.30); POTASSIUM 4.4 MMOL/L (3.6-5.0); TOTAL PROTEIN 7.2 GM/DL (6.4-8.2)
[2023-07-25 16:16] LABS: CHOLESTEROL 160 MG/DL (< 200); HDL CHOLESTEROL 49 MG/DL (40-60); TRIGLYCERIDES 173 MG/DL (<150); VLDL CHOLESTEROL 35 MG/DL (5-40)
== END ==
LOC: LAB FS 13:34
PROVIDERS: ATTEND Registered Nurse
DX: E78.2 Mixed hyperlipidemia (principal); D86.2 Sarcoidosis of lung with sarcoidosis of lymph nodes; Z79.899 Other long term (current) drug therapy
CPT/HCPCS: 36415; 80053; 80061

== ENCOUNTER → 2023-08-18 | Outpatient (CLI) | payer BC ==
[2023-08-18 14:36] LABS: BASOPHILS % (AUTO) 1 % (0-10); EOSINOPHILS % (AUTO) 1 % (0-10); HEMATOCRIT 42 % (35-52); HEMOGLOBIN 14.2 g/dL (11.5-16.0); LYMPHOCYTES # (AUTO) 1.7 10^3/uL (1.0-4.0); LYMPHOCYTES % (AUTO) 31 % (12-44); MEAN CORPUSCULAR HEMOGLOBIN 33 pg (25-34); MEAN CORPUSCULAR HGB CONC 34 g/dL (32-36); MEAN CORPUSCULAR VOLUME 97 fL (80-99); MEAN PLATELET VOLUME 9.2 fL (9.0-12.2); MONOCYTES # (AUTO) 0.5 10^3/uL (0.0-1.0); MONOCYTES % (AUTO) 9 % (0-12); NEUTROPHILS # (AUTO) 3.3 10^3/uL (1.8-7.8); NEUTROPHILS % (AUTO) 59 % (42-75); PLATELET COUNT 203 10^3/uL (130-400); WHITE BLOOD COUNT 5.7 10^3/uL (4.3-11.0)
[2023-08-18 15:00] LABS: POTASSIUM 3.8 MMOL/L (3.6-5.0)
[2023-08-18 15:01] LABS: ALBUMIN 4.4 GM/DL (3.2-4.5); BILIRUBIN,TOTAL 0.4 MG/DL (0.1-1.0); CALCIUM 9.3 MG/DL (8.5-10.1); CREATININE SERUM 0.98 MG/DL (0.60-1.30); TOTAL PROTEIN 7.2 GM/DL (6.4-8.2)
== END ==
LOC: LAB FS 13:53
PROVIDERS: ATTEND Registered Nurse
DX: D86.2 Sarcoidosis of lung with sarcoidosis of lymph nodes (principal); Z79.899 Other long term (current) drug therapy
CPT/HCPCS: 36415; 80053; 85025

== ENCOUNTER → 2023-09-16 | Outpatient (CLI) | payer BC ==
[2023-09-16 15:41] LABS: BILIRUBIN,TOTAL 0.5 MG/DL (0.1-1.0); CALCIUM 9.5 MG/DL (8.5-10.1); POTASSIUM 4.6 MMOL/L (3.6-5.0); TOTAL PROTEIN 7.3 GM/DL (6.4-8.2)
[2023-09-16 15:46] LABS: ALBUMIN 4.2 GM/DL (3.2-4.5); CREATININE SERUM 0.91 MG/DL (0.60-1.30)
== END ==
LOC: LAB FS 15:16
PROVIDERS: ATTEND Registered Nurse
DX: D86.2 Sarcoidosis of lung with sarcoidosis of lymph nodes (principal); Z79.899 Other long term (current) drug therapy
CPT/HCPCS: 36415; 80053